=== PATIENT | female | born 1960 | race Caucasian/White ===

== ENCOUNTER → 2020-06-21 | Outpatient (CLI) | payer OTHER ==
[~2020-06-21] MED LIST: ALBUTEROL2.5 MG/3 M INH; BREO ELLIPTA 11 EACH INH; BUSPIRONE HCL10 MG PO; CRESTOR10 MG PO; GABAPENTIN600 MG PO; LO-DOSE ASPIRIN81 MG PO; METOPROLOL TART25 MG PO; NORVASC5 MG PO; PLAVIX75 MG PO; PREVACID 24HR15 MG PO; ROBAXIN-750750 MG PO; ROPINIROLE HCL1 MG PO; SINGULAIR10 MG PO; SPIRIVA18 MCG INH; VENTOLIN HFA 66.7 GM INH; VISTARIL25 MG PO; WELLBUTRIN XL150 MG PO
== END ==
LOC: HEART 5 15:15
DX: J44.9 Chronic obstructive pulmonary disease, unspecified (principal); R94.2 Abnormal results of pulmonary function studies; F17.210 Nicotine dependence, cigarettes, uncomplicated
CPT/HCPCS: 94010; 94729

== ENCOUNTER → 2020-07-12 | Day surgery (SDC) | payer OTHER | END | disposition home or self-care (01) | LOC: OR 07-07 07:30 | DX: R91.8 Other nonspecific abnormal finding of lung field (principal); R59.0 Localized enlarged lymph nodes; F17.210 Nicotine dependence, cigarettes, uncomplicated; I25.2 Old myocardial infarction; I10 Essential (primary) hypertension; J45.909 Unspecified asthma, uncomplicated; E66.9 Obesity, unspecified; M19.90 Unspecified osteoarthritis, unspecified site; F41.8 Other specified anxiety disorders; Z88.1 Allergy status to other antibiotic agents; Z88.8 Allergy status to other drugs, medicaments and biological substances; Z82.49 Family history of ischemic heart disease and other diseases of the circulatory system; Z82.62 Family history of osteoporosis; Z81.8 Family history of other mental and behavioral disorders; Z79.899 Other long term (current) drug therapy; Z83.3 Family history of diabetes mellitus; Z80.1 Family history of malignant neoplasm of trachea, bronchus and lung; Z82.61 Family history of arthritis | CPT/HCPCS: 71045; 76000; J0171; J2704; J7120 ==